=== PATIENT | female | born 1970 | race Caucasian/White ===

== ENCOUNTER 2019-05-27 15:04 | Outpatient (CLI) | payer BC, SELFPAY ==
[2019-05-27 15:40] LABS: Hematocrit 40.6 % (37.0-47.0); Hemoglobin 13.9 g/dL (12.0-15.0); Mean Corpuscular HGB Conc 34.2 g/dl (32-36); Mean Corpuscular Hemoglobin 28.6 pg (26-34); Mean Corpuscular Volume 83.5 fl (80-100); Mean Platelet Volume 10.5 fl (7.4-10.4); Platelet Count Result 170 k/mm3 (150-375); Red Blood Count 4.86 M/mm3 (4.2-5.4); Red Cell Distribution Width 13.6 % (11.5-14.5); White Blood Count 3.8 K/mm3 (4.5-10.0)
[2019-05-27 15:52] LABS: Alanine Aminotransferase 12 U/L (4-35); Albumin Level 4.5 g/dL (3.5-5.1); Alkaline Phosphatase 59 U/L (38-126); Aspartate Amino Transferase 19 U/L (14-36); Blood Urea Nitrogen 14 mg/dL (7-17); Calcium 9.4 mg/dL (8.4-10.2); Carbon Dioxide 26 mmol/L (22-30); Chloride 105 mmol/L (98-107); Estimated Glomerular Filt Rate 53; Glucose 102 mg/dL (65-105); Magnesium 2.3 mg/dL (1.6-2.3); Potassium 4.3 mmol/L (3.4-5.0); Sodium 137 mmol/L (137-145)
[2019-05-27 16:01] LABS: NT Pro B Type Natriuretic Pept 93 PG/ML (5-100)
== END 2019-05-27 15:05 | disposition home or self-care (01) ==
PROVIDERS: PCP Family Medicine
DX: I27.20 Pulmonary hypertension, unspecified (principal); R55 Syncope and collapse; D64.9 Anemia, unspecified
CPT/HCPCS: 36415; 80053; 83036; 83735; 83880; 85027

== ENCOUNTER 2019-06-16 15:22 | Outpatient (CLI) | payer BC, SELFPAY ==
[2019-06-16 16:34] LABS: Blood Urea Nitrogen 12 mg/dL (7-17); Calcium 9.7 mg/dL (8.4-10.2); Carbon Dioxide 24 mmol/L (22-30); Chloride 106 mmol/L (98-107); Estimated Glomerular Filt Rate 60; Glucose 102 mg/dL (65-105); Potassium 4.8 mmol/L (3.4-5.0); Sodium 138 mmol/L (137-145)
== END 2019-06-16 15:23 | disposition home or self-care (01) ==
PROVIDERS: PCP Family Medicine
DX: I27.0 Primary pulmonary hypertension (principal)
CPT/HCPCS: 36415; 80048

== ENCOUNTER 2019-07-12 09:45 | Outpatient (CLI) | payer BC, SELFPAY ==
--- NOTE | ~2019-07-12 | DEXA_ITS ---
Bone Density Report Name: Bianca Hope Age: 48 Sex: Female Ethnicity: White Date of : 1970 Indication: postmenopausal; Referring Provider: MAE, YAKELIN Study: Bone densitometry was performed. Exam Date: July 12, 2019 Accession number: [id number] Bone Density: Region BMD T-score Z-score Classification AP Spine (L1-L4) 0.851 -1.8 -1.2 Osteopenia Femoral Neck (Left) 0.764 -0.8 -0.2 Normal Total Hip (Left) 0.873 -0.6 -0.2 Normal Total Hip Bilateral Avg 0.870 -0.6 -0.3 Normal Femoral Neck (Right) 0.775 -0.7 -0.1 Normal Total Hip (Right) 0.865 -0.6 -0.3 Normal World Health Organization criteria for BMD impression classify patients as: Normal (T-score at or above -1.0), Osteopenia (T-score between -1.0 and -2.5), or Osteoporosis (T-score at or below -2.5). 10-year Fracture Risk(1): Major Osteoporotic Fracture 2.9% Hip Fracture 0.1% Reported Risk Factors: [place] (), Neck BMD=0.764, BMI=29.4 (1) FRAX(R) Version 3.08. Fracture probability calculated for an untreated patient. Fracture probability may be lower if the patient has received treatment. Clinical Information Provided by Patient: Has used the following medications: Vitamin D Patient maximum height was 63 Menopause Age: 46 Does not regularly consume dairy products Onset of menses at age 13 Number of children 0 Impression: The patient has low bone mass, based on the Total Spine T-score. The patient has an estimated ten-year risk of hip fracture of 0.1% and an estimated ten-year risk of major fracture of 2.9%, based on the WHO FRAX algorithm. Discussion: BONE DENSITY IS LOW AT ONE OR MORE SKELETAL SITES. This patient's lowest T-score is low at one or more skeletal sites. It meets the World Health Organization's (WHO) criteria for ?low bone mass? (T-score between -1.0 and -2.5). The patient's 10-year risk of fracture as calculated by FRAX is less than the threshold where pharmacological therapy is recommended by the National Osteoporosis Foundation (NOF). However, all treatment decisions require clinical judgment and consideration of individual patient factors, including patient preferences, comorbidities, previous drug use, risk factors not captured in the FRAX model (e.g., frailty, falls, vitamin D deficiency, increased bone turnover, interval significant decline in bone density) and possible under or overestimation of fracture risk by FRAX. The patient should follow a healthful lifestyle (good nutrition with adequate calcium and vitamin D, and appropriate weight-bearing exercise). Follow-Up: Consider repeating this study in 2 to 3 years to reassess this patient's status, or sooner if there is some new clinical indication. Reported by: ROLANDO on 07/14/2019 8:45:00 AM. Revi
--- NOTE | ~2019-07-12 | MM_ITS ---
EXAMINATION: MM screening [facility] BI w aramis HISTORY: Screening mammogram TECHNIQUE: Craniocaudal and mediolateral oblique 3-D tomosynthesis images were obtained and synthetic 2-D images were generated. CAD analysis was submitted and interpreted. COMPARISON: 07/09/2018, 07/07/2017, 06/22/2016 bilateral digital screening mammogram examinations... BREAST PARENCHYMAL COMPOSITION: There are scattered areas of fibroglandular density. FINDINGS: Stable bilateral mammary lymph nodes. There is no evidence of suspicious mass, calcificatio n, or architectural distortion to suggest malignancy in either breast. There has been no suspicious i nterval change. IMPRESSION: 1. No mammographic evidence of malignancy. 2. Recommend routine screening mammography in one year. BI-RADS Category 2: Benign finding(s). Reviewed, dictated and finalized at location A.
== END 2019-07-12 09:46 | disposition home or self-care (01) ==
LOC: ANHIMG 09:47
PROVIDERS: PCP Family Medicine; Visit Provider Nurse Practitioner
DX: Z12.31 Encounter for screening mammogram for malignant neoplasm of breast (principal); Z13.820 Encounter for screening for osteoporosis; M85.88 Other specified disorders of bone density and structure, other site
CPT/HCPCS: 77063; 77067; 77080

== ENCOUNTER 2019-08-25 15:20 | Outpatient (CLI) | payer BC, SELFPAY ==
[2019-08-25 16:16] LABS: Basophils Percent Auto 0.7 % (0.2-1.2); Eosinophils Absolute Auto 0.1 K/mm3 (0-0.3); Eosinophils Percent Auto 2.8 % (0-4.4); Hematocrit 40.9 % (37.0-47.0); Hemoglobin 13.7 g/dL (12.0-15.0); Immature Granulocyte Absolute 0.01 K/mm3 (0.00-0.031); Immature Granulocyte Percent A 0.2 % (0-0.5); Lymphocytes Absolute Auto 1.46 K/mm3 (0.9-3.2); Lymphocytes Percent Auto 34.6 % (18.3-44.2); Mean Corpuscular HGB Conc 33.5 g/dl (32-36); Mean Corpuscular Hemoglobin 28.4 pg (26-34); Mean Corpuscular Volume 84.7 fl (80-100); Mean Platelet Volume 11.3 fl (7.4-10.4); Monocytes Absolute Auto 0.3 K/mm3 (0.1-0.6); Monocytes Percent Auto 7.8 % (2.6-8.5); Neutrophils Absolute Auto 2.3 K/mm3 (1.3-6.7); Neutrophils Percent Auto 53.9 % (45.5-73.1); Platelet Count Result 184 k/mm3 (150-375); Red Blood Count 4.83 M/mm3 (4.2-5.4); Red Cell Distribution Width 13.7 % (11.5-14.5); White Blood Count 4.2 K/mm3 (4.5-10.0)
[2019-08-25 16:27] LABS: Hemoglobin A1C 5.1 % (<5.7)
[2019-08-25 16:30] LABS: Alanine Aminotransferase 13 U/L (4-35); Albumin Level 4.5 g/dL (3.5-5.1); Alkaline Phosphatase 66 U/L (38-126); Aspartate Amino Transferase 21 U/L (14-36); Bilirubin,Total 1.8 mg/dL (0.2-1.3); Blood Urea Nitrogen 15 mg/dL (7-17); Calcium 9.3 mg/dL (8.4-10.2); Carbon Dioxide 25 mmol/L (22-30); Chloride 105 mmol/L (98-107); Estimated Glomerular Filt Rate 53; Glucose 98 mg/dL (65-105); Magnesium 2.3 mg/dL (1.6-2.3); Potassium 4.4 mmol/L (3.4-5.0); Sodium 137 mmol/L (137-145)
[2019-08-25 16:37] LABS: NT Pro B Type Natriuretic Pept 289 PG/ML (5-100)
== END 2019-08-25 15:21 | disposition home or self-care (01) ==
PROVIDERS: PCP Family Medicine
DX: I27.20 Pulmonary hypertension, unspecified (principal); D64.9 Anemia, unspecified; R55 Syncope and collapse; Z79.899 Other long term (current) drug therapy; R94.4 Abnormal results of kidney function studies
CPT/HCPCS: 36415; 80053; 83036; 83735; 83880; 85025

== ENCOUNTER 2020-02-12 15:26 | Outpatient (CLI) | payer BC, SELFPAY ==
[2020-02-12 16:31] LABS: Vitamin D 25 Hydroxy 61.3 ng/mL
== END 2020-02-12 15:27 | disposition home or self-care (01) ==
LOC: ANHLAB 15:29
PROVIDERS: PCP Family Medicine; Visit Provider Obstetrics & Gynecology Gynecology
DX: E55.9 Vitamin D deficiency, unspecified (principal)
CPT/HCPCS: 36415; 82306

== ENCOUNTER 2020-07-14 08:33 | Outpatient (CLI) | payer BC, SELFPAY ==
--- NOTE | ~2020-07-14 | MM_ITS ---
EXAMINATION: MM screening [facility] BI w aramis HISTORY: Screening TECHNIQUE: Craniocaudal and mediolateral oblique 3-D tomosynthesis images were obtained and synthetic 2-D images were generated. CAD analysis was submitted and interpreted. COMPARISON: Comparison to multiple prior studies sequentially, with oldest reviewed study dated 06/22. BREAST PARENCHYMAL COMPOSITION: There are scattered areas of fibroglandular density. FINDINGS: There are developing masses in the upper outer quadrant of the right breast. There are deve loping asymmetries in the upper outer quadrant of the left breast. IMPRESSION: 1. Developing right breast masses and left breast asymmetries, both in the upper outer quadrants. 2. Additional mammographic views and possible breast ultrasound are recommended. BI-RADS Category 0: Incomplete: Needs additional imaging evaluation. Reviewed, dictated and finalized at location A. IMPRESSION: 1. Developing right breast masses and left breast asymmetries, both in the uppe r outer quadrants. 2. Additional mammographic views and possible breast ultrasound are recommended . BI-RADS Category 0: Incomplete: Needs additional imaging evaluation.
== END 2020-07-14 08:34 | disposition home or self-care (01) ==
LOC: ANHIMG 08:34
PROVIDERS: PCP Family Medicine; Visit Provider Nurse Practitioner
DX: Z12.31 Encounter for screening mammogram for malignant neoplasm of breast (principal); R92.8 Other abnormal and inconclusive findings on diagnostic imaging of breast
CPT/HCPCS: 77063; 77067

== ENCOUNTER 2020-07-31 07:52 | Outpatient (CLI) | payer BC, SELFPAY ==
[2020-07-31 08:57] LABS: Alanine Aminotransferase 11 U/L (4-35); Albumin Level 4.3 g/dL (3.5-5.1); Alkaline Phosphatase 60 U/L (38-126); Anion Gap 8 mmol/L (8-16); Aspartate Amino Transferase 17 U/L (14-36); Bilirubin,Total 1.9 mg/dL (0.2-1.3); Blood Urea Nitrogen 15 mg/dL (7-17); Calcium 9.3 mg/dL (8.4-10.2); Carbon Dioxide 24 mmol/L (22-30); Chloride 109 mmol/L (98-107); Cholesterol 140 mg/dL (0-200); Estimated Glomerular Filt Rate 53; Glucose 99 mg/dL (65-105); HDL Direct 46 mg/dL; Potassium 4.2 mmol/L (3.4-5.0); Sodium 141 mmol/L (137-145); Triglycerides 90 mg/dL (<150)
[2020-07-31 09:08] LABS: LDL Cholesterol Direct 60 mg/dL
== END 2020-07-31 07:53 | disposition home or self-care (01) ==
PROVIDERS: PCP Family Medicine; Visit Provider Family Medicine
DX: I27.0 Primary pulmonary hypertension (principal); Z00.00 Encounter for general adult medical examination without abnormal findings; E78.2 Mixed hyperlipidemia; E53.8 Deficiency of other specified B group vitamins; R53.83 Other fatigue
CPT/HCPCS: 36415; 80053; 80061; 82607; 84443

== ENCOUNTER 2020-08-13 11:12 | Outpatient (CLI) | payer BC, SELFPAY ==
--- NOTE | ~2020-08-13 | MMUS_ITS ---
EXAMINATION: MM diagnostic mammo BI, US breast BI limited HISTORY: Follow-up bilateral breast masses TECHNIQUE: Additional 3-D tomosynthesis images of the breasts were performed and synthetic 2-D images were generated. CAD analysis was submitted and interpreted. High resolution limited bilateral breast ultrasound was performed. COMPARISON: 07/14/2020 BREAST PARENCHYMAL COMPOSITION: Breast composed of scattered areas of fibroglandular density. FINDINGS: MAMMOGRAPHIC FINDINGS: There is a focal mass in the upper outer quadrant of the right breast, likely representing benign int ramammary lymph node with central lucency. There are no suspicious masses, calcifications or architec tural distortion in the left breast to suggest malignancy. ULTRASOUND: Limited right breast ultrasound: At 8:30, 3 cm from the nipple, there is a septated 5 mm cyst. At 12: 00 near the nipple there is a 3 mm cyst. Limited left breast ultrasound: At 1:00, 3 cm from the nipple, there is a cluster of microcysts measu ring 7 mm. At 2:00, 3 cm from the nipple, there is a 4 mm cyst. No suspicious masses in either breast to suggest malignancy. IMPRESSION: 1. No evidence for malignancy in either breast. Benign findings. 2. Routine yearly screening mammogram and regular clinical breast examination are recommended. BI-RADS Category 2: Benign finding(s). Reviewed, dictated and finalized at location A. IMPRESSION: 1. No evidence for malignancy in either breast. Benign findings. 2. Routine yearly screening mammogram and regular clinical breast examination a re recommended. BI-RADS Category 2: Benign finding(s).
== END 2020-08-13 11:13 | disposition home or self-care (01) ==
LOC: ANHIMG 11:13
PROVIDERS: PCP Family Medicine; Visit Provider Obstetrics & Gynecology Gynecology
DX: R92.8 Other abnormal and inconclusive findings on diagnostic imaging of breast (principal)
CPT/HCPCS: 76642; 77066

== ENCOUNTER 2021-03-15 16:32 | Outpatient (CLI) | payer BC, SELFPAY ==
[2021-03-15 18:57] LABS: Vitamin D 25 Hydroxy 60.3 ng/mL
== END 2021-03-15 16:33 | disposition home or self-care (01) ==
LOC: ANHLAB 16:35
PROVIDERS: PCP Family Medicine; Visit Provider Obstetrics & Gynecology Gynecology
DX: E55.9 Vitamin D deficiency, unspecified (principal)
CPT/HCPCS: 36415; 82306

== ENCOUNTER 2021-07-19 18:51 | Emergency (ER) | payer BC, SELFPAY ==
--- NOTE | 2021-07-19 18:55 | ED.URI ---
HPI - URI/Sore Throat General Stated Complaint: fever,congestion Source: patient Mode of arrival: ambulatory Limitations: no limitations History of Present Illness HPI Narrative: is a 50-year-old female patient presenting to the clinic today with complaints of fever and congestion x3 days. She reports that Sunday morning she started with a low-grade fever, nasal congestion, and a mild productive cough. She reports that she is bringing up some yellow phlegm. History of obstructive sleep apnea and uses a CPAP. His temperature has been 101 ?F and she has been keeping that down with Tylenol. Her temperature currently is 38 ?C. She denies any chest pain or short of breath. She denies any known exposure to anyone with COVID, flu, or strep. Related Data Home Medications Medication Instructions Recorded Confirmed riociguat 2.5 mg tablet (Adempas) 2.5 mg PO TID 02/02/20 02/08/21 selexipag 1,600 mcg tablet tablet PO 07/19/21 (Uptravi) Allergies Allergy/AdvReac Type Severity Reaction Status Date / Time fentanyl Allergy Mild vomiting Verified 02/07/21 15:38 Review of Systems Review of Systems: Pertinent positives per HPI. Patient denies any chills, rash, headache, visual changes, dizziness, sore throat, shortness of breath, chest pain, palpitations, nausea, vomiting, diarrhea, constipation, abdominal pain, or any urinary issues. [facility] Past Medical History Medical History History of obstructive sleep apnea Obstructive sleep apnea on CPAP Primary pulmonary hypertension Seasonal allergies Vitamin B12 deficiency Family History Family History Father Patient's father is in good health Social History Social History Second hand tobacco smoke exposure: No Alcohol intake: never Substance use: never Substance use type: does not use Gender identity (if verbalized by the patient): Female Comments At the time of my signature, I reviewed and agree with the nursing past medical, surgical, social, and family history. There is no relevant family history pertinent to the patient complaint. Exam Narrative: General: Well-developed, well nourished, in no apparent distress Head: Normocephalic, atraumatic Eyes: Pupils equally round and reactive to light bilaterally, EOM intact, sclera injected bilaterally and conjunctive clear, no discharge, lids normal Ears: TMs intact and clear, ear canals clear, no drainage, grossly hearing normal. Nose: Nares patent, clear nasal discharge, mild inflammation, no sinus tenderness. Mouth: Oropharynx without lesions or masses, good dentition, MMM. Postnasal drip Neck: Supple, trachea midline, no enlargement of anterior or posterior cervical nodes, no thyroid masses or goiter palpable. Cardio: Tachycardic, regular rhythm, s1 and s2 normal, no murmur appreciated. Resp: Clear to auscultation bilaterally anteriorly and posteriorly, no rhonchi, rales, wheezing or rubs Course Course Emergency Course: Portions of this record may have been created with voice recognition software. Level of Care: Express Care Visit Vital Signs Vital signs: Vital signs reviewed MDM - URI/Sore Throat MDM Narrative Medical decision making narrative: At the time of visit patient is resting comfortably on the exam table. She reports fever, congestion, and productive cough x3 days. COVID and influenza testing completed in the clinic. COVID and flu testing were negative. I suspect the patient has an upper respiratory infection and supportive measures were discussed with the patient she voiced understanding of discharge instructions and agrees to the treatment plan. Differential Diagnosis Differential diagnosis: Likely upper respiratory infection, sinusitis, viral infection, bronchitis, influenza, pharyngitis and othe
[2021-07-19 18:58] VITALS: BP 120/71; PULSE 111; RESP 20; TEMP 38; O2SAT 96
== END 2021-07-19 19:42 | disposition home or self-care (01) ==
PROVIDERS: Emergency Provider Nurse Practitioner Family; PCP Family Medicine
DX: J06.9 Acute upper respiratory infection, unspecified (principal); Z20.822 Contact with and (suspected) exposure to COVID-19; G47.33 Obstructive sleep apnea (adult) (pediatric); I27.0 Primary pulmonary hypertension
CPT/HCPCS: 87426; 87804; 99213; C9803; G0463

== ENCOUNTER 2021-09-23 11:51 | Outpatient (CLI) | payer BC, SELFPAY ==
[2021-09-23 12:53] LABS: Vitamin D 25 Hydroxy 99.7 ng/mL
== END 2021-09-23 11:52 | disposition home or self-care (01) ==
PROVIDERS: PCP Family Medicine; Visit Provider Nurse Practitioner
DX: E55.9 Vitamin D deficiency, unspecified (principal)
CPT/HCPCS: 36415; 82306

== ENCOUNTER 2021-12-06 15:45 | Outpatient (CLI) | payer BC, SELFPAY ==
--- NOTE | ~2021-12-06 | MM_ITS ---
EXAMINATION: MM screening [facility] BI w aramis HISTORY: Screening mammogram TECHNIQUE: Craniocaudal and mediolateral oblique 3-D tomosynthesis images were obtained and synthetic 2-D images were generated. CAD analysis was submitted and interpreted. COMPARISON: 08/13/2020, 07/14/2020, 07/12/2019, 07/09/2018 BREAST PARENCHYMAL COMPOSITION: There are scattered areas of fibroglandular density. FINDINGS: No suspicious mass, calcification, or architectural distortion are identified in either rizwana ast to suggest malignancy. There has been no suspicious interval change. IMPRESSION: 1. No mammographic evidence of malignancy. 2. Recommend routine screening mammography in one year. BI-RADS Category 1: Negative Reviewed, dictated and finalized at location A.
--- NOTE | ~2021-12-06 | DEXA_ITS ---
Bone Density Report Name: LANCE CERRATO Age: 51 Sex: Female Ethnicity: White Date of : 1970 Indication: osteopenia; postmenopausal Referring Provider: MAE, YAKELIN Study: Bone densitometry was performed. Exam Date: December 06, 2021 Accession number: [id number] Bone Density: Region BMD T-score Z-score Classification AP Spine(L1-L4) 0.844 -1.8 -1.2 Osteopenia Femoral Neck (Left) 0.732 -1.1 -0.4 Osteopenia Total Hip (Left) 0.812 -1.1 -0.6 Osteopenia Femoral Neck (Right) 0.751 -0.9 -0.2 Normal Total Hip (Right) 0.830 -0.9 -0.5 Normal Total Hip Mean 0.821 -1.0 -0.6 Normal World Health Organization criteria for BMD impression classify patients as: Normal (T-score at or above -1.0), Osteopenia (T-score between -1.0 and -2.5), or Osteoporosis (T-score at or below -2.5). 10-year Fracture Risk(1): Major Osteoporotic Fracture 3.7% Hip Fracture 0.2% Reported Risk Factors: [place] (), Neck BMD=0.732, BMI=29.7 (1) FRAX(R) Version 3.08. Fracture probability calculated for an untreated patient. Fracture probability may be lower if the patient has received treatment. Previous Exams: Region Exam Age BMD T-score BMD Change BMD Change Date g/cm2 vs Baseline vs Previous AP Spine (L1-L4) 12/06/2021 51 0.844 -1.8 -0.006 (-0.8%) -0.006 (-0.8%) 07/12/2019 48 0.851 -1.8 Total Hip(Left) 12/06/2021 51 0.812 -1.1 -0.061 (-7.0%) -0.061 (-7.0%) 07/12/2019 48 0.873 -0.6 Total Hip(Right) 12/06/2021 51 0.830 -0.9 -0.035 (-4.1%) -0.035 (-4.1%) 07/12/2019 48 0.865 -0.6 *Denotes significance at 95% confidence level, LSC for AP Spine = 0.022 g/cm2, LSC for Total Hip = 0.027 g/cm2 Clinical Information Provided by Patient: Has used the following medications: Vitamin D, Calcium Patient maximum height was 64 Menopause Age: 46 No regular weight bearing exercise Drinks caffeinated beverages Onset of menses at age 13 Number of children 0 Impression: The patient has low bone mass, based on the Total Spine T-score. The patient has an estimated ten-year risk of hip fracture of 0.2% and an estimated ten-year risk of major fracture of 3.7%, based on the WHO FRAX algorithm. The BMD for the Total Hip(Left) decreased, changing by -7.0% since the last DXA exam. The BMD for the Total Hip(Right) decreased, changing by -4.1% since the last DXA exam. Discussion: BONE DENSITY IS LOW AT ONE OR MORE SKELETAL SITES. This
== END 2021-12-06 15:46 | disposition home or self-care (01) ==
PROVIDERS: PCP Family Medicine; Visit Provider Nurse Practitioner
DX: Z12.31 Encounter for screening mammogram for malignant neoplasm of breast (principal); M85.88 Other specified disorders of bone density and structure, other site; M85.852 Other specified disorders of bone density and structure, left thigh
CPT/HCPCS: 77063; 77067; 77080

== ENCOUNTER 2022-01-28 08:15 | Outpatient (CLI) | payer BC, SELFPAY ==
[2022-01-28 08:40] LABS: Alanine Aminotransferase 16 U/L (6-35); Albumin Level 4.4 g/dL (3.5-5.1); Alkaline Phosphatase 62 U/L (38-126); Anion Gap 5 mmol/L (8-16); Aspartate Amino Transferase 19 U/L (14-36); Bilirubin,Total 1.7 mg/dL (0.2-1.3); Blood Urea Nitrogen 14 mg/dL (7-17); Calcium 8.8 mg/dL (8.4-10.2); Carbon Dioxide 23 mmol/L (22-30); Chloride 112 mmol/L (98-107); Cholesterol 144 mg/dL (0-200); Estimated Glomerular Filt Rate 59; Glucose 104 mg/dL (65-110); HDL Direct 43 mg/dL; Potassium 4.1 mmol/L (3.4-5.0); Sodium 140 mmol/L (137-145); Triglycerides 80 mg/dL (<150)
[2022-01-28 08:51] LABS: LDL Cholesterol Direct 70 mg/dL
== END 2022-01-28 08:16 | disposition home or self-care (01) ==
LOC: ANHLAB 08:17
PROVIDERS: PCP Family Medicine; Visit Provider Physician Assistant
DX: I27.20 Pulmonary hypertension, unspecified (principal); E53.8 Deficiency of other specified B group vitamins; E78.5 Hyperlipidemia, unspecified
CPT/HCPCS: 36415; 80053; 80061; 82607

== ENCOUNTER 2022-04-11 11:56 | Outpatient (CLI) | payer BC, SELFPAY ==
[2022-04-11 14:08] LABS: Vitamin D 25 Hydroxy 66.7 ng/mL
== END 2022-04-11 11:57 | disposition home or self-care (01) ==
LOC: ANHLAB 11:58
PROVIDERS: PCP Family Medicine; Visit Provider Nurse Practitioner
DX: E55.9 Vitamin D deficiency, unspecified (principal)
CPT/HCPCS: 36415; 82306

== ENCOUNTER 2023-01-27 09:10 | Outpatient (CLI) | payer BC, SELFPAY ==
[2023-01-27 09:55] LABS: Hematocrit 38.3 % (37.0-47.0); Hemoglobin 12.7 g/dL (12.0-15.0); Mean Corpuscular HGB Conc 33.2 g/dl (32-36); Mean Corpuscular Hemoglobin 27.8 pg (26-34); Mean Corpuscular Volume 83.8 fl (80-100); Mean Platelet Volume 10.9 fl (7.4-10.4); Platelet Count Result 141 k/mm3 (150-375); Red Blood Count 4.57 M/mm3 (4.2-5.4); Red Cell Distribution Width 14.6 % (11.5-14.5); White Blood Count 3.6 K/mm3 (4.5-10.0)
[2023-01-27 10:05] LABS: Alanine Aminotransferase 11 U/L (6-35); Albumin Level 4.1 g/dL (3.5-5.1); Alkaline Phosphatase 58 U/L (38-126); Anion Gap 6 mmol/L (8-16); Aspartate Amino Transferase 16 U/L (14-36); Bilirubin,Total 1.9 mg/dL (0.2-1.3); Blood Urea Nitrogen 19 mg/dL (7-17); Calcium 9.1 mg/dL (8.4-10.2); Carbon Dioxide 22 mmol/L (22-30); Chloride 110 mmol/L (98-107); Cholesterol 139 mg/dL (0-200); Estimated Glomerular Filt Rate 53; Glucose 107 mg/dL (65-110); HDL Direct 40 mg/dL; Potassium 4.1 mmol/L (3.4-5.0); Sodium 138 mmol/L (137-145); Triglycerides 89 mg/dL (<150)
[2023-01-27 10:15] LABS: LDL Cholesterol Direct 73 mg/dL
== END 2023-01-27 09:11 | disposition home or self-care (01) ==
PROVIDERS: PCP Family Medicine; Visit Provider Physician Assistant
DX: Z13.220 Encounter for screening for lipoid disorders (principal); E53.8 Deficiency of other specified B group vitamins; R53.83 Other fatigue; Z13.1 Encounter for screening for diabetes mellitus
CPT/HCPCS: 36415; 80053; 80061; 82607; 85027

== ENCOUNTER 2023-03-27 14:57 | Outpatient (CLI) | payer BC, SELFPAY ==
--- NOTE | ~2023-03-27 | MM_ITS ---
EXAMINATION: MM screening [facility] BI w aramis HISTORY: Screening mammogram TECHNIQUE: Craniocaudal and mediolateral oblique 3-D tomosynthesis images were obtained and synthetic 2-D images were generated. CAD analysis was submitted and interpreted. COMPARISON: 12/06/2021, 08/13/2020, 07/14/2020, 07/12/2019 BREAST PARENCHYMAL COMPOSITION: There are scattered areas of fibroglandular density. FINDINGS: No suspicious mass, calcification, or architectural distortion are identified in either rizwana ast to suggest malignancy. There has been no suspicious interval change. IMPRESSION: 1. No mammographic evidence of malignancy. 2. Recommend routine screening mammography in one year. BI-RADS Category 1: Negative Reviewed, dictated and finalized at location A. ING MACHINE OPERATOR
== END 2023-03-27 14:58 | disposition home or self-care (01) ==
PROVIDERS: PCP Family Medicine; Visit Provider Nurse Practitioner
DX: Z12.31 Encounter for screening mammogram for malignant neoplasm of breast (principal)
CPT/HCPCS: 77063; 77067

== ENCOUNTER 2023-06-08 15:13 | Outpatient (CLI) | payer BC, SELFPAY ==
[2023-06-08 18:41] LABS: Vitamin D 25 Hydroxy 61.8 ng/mL
== END 2023-06-08 15:14 | disposition home or self-care (01) ==
LOC: ANHLAB 15:16
PROVIDERS: PCP Family Medicine; Visit Provider Obstetrics & Gynecology Gynecology
DX: E55.9 Vitamin D deficiency, unspecified (principal)
CPT/HCPCS: 36415; 82306

== ENCOUNTER 2024-02-08 09:29 | Outpatient (CLI) | payer BC, SELFPAY ==
[2024-02-08 09:47] LABS: Hematocrit 40.2 % (37.0-47.0); Hemoglobin 13.4 g/dL (12.0-15.0); Mean Corpuscular HGB Conc 33.3 g/dl (32-36); Mean Corpuscular Hemoglobin 27.9 pg (26-34); Mean Corpuscular Volume 83.8 fl (80-100); Mean Platelet Volume 9.3 fl (7.4-10.4); Platelet Count Result 132 k/mm3 (150-375); Red Cell Distribution Width 14.5 % (11.5-14.5); White Blood Count 2.9 K/mm3 (4.5-10.0)
[2024-02-08 09:58] LABS: Alanine Aminotransferase 17 U/L (6-35); Albumin Level 4.4 g/dL (3.5-5.1); Alkaline Phosphatase 62 U/L (38-126); Anion Gap 4 mmol/L (4-12); Aspartate Amino Transferase 19 U/L (14-36); Bilirubin,Total 2.1 mg/dL (0.2-1.3); Blood Urea Nitrogen 16 mg/dL (7-17); Calcium 9.2 mg/dL (8.4-10.2); Carbon Dioxide 24 mmol/L (22-30); Chloride 109 mmol/L (98-107); Cholesterol 146 mg/dL (0-200); Estimated Glomerular Filt Rate 47; Glucose 99 mg/dL (65-110); HDL Direct 42 mg/dL; Potassium 4.4 mmol/L (3.4-5.0); Sodium 137 mmol/L (137-145); Triglycerides 108 mg/dL (<150)
[2024-02-08 10:08] LABS: LDL Cholesterol Direct 66 mg/dL
[2024-02-08 11:25] LABS: Free T4 Free Thyroxine Reflex 1.35 ng/dL (0.78-2.19)
[2024-02-08 13:53] LABS: Total Triiodothyronine (T3) 1.42 NG/ML (0.97-1.69)
== END 2024-02-08 09:30 | disposition home or self-care (01) ==
LOC: ANHLAB 09:32
PROVIDERS: PCP Family Medicine; Visit Provider Physician Assistant Medical
DX: R41.9 Unspecified symptoms and signs involving cognitive functions and awareness (principal); J45.909 Unspecified asthma, uncomplicated; R53.83 Other fatigue; I27.0 Primary pulmonary hypertension; E78.2 Mixed hyperlipidemia; E53.8 Deficiency of other specified B group vitamins; R17 Unspecified jaundice
CPT/HCPCS: 36415; 80053; 80061; 82248; 82607; 84439; 84443; 84480; 85027

== ENCOUNTER 2024-05-05 15:30 | Outpatient (CLI) | payer BC, SELFPAY ==
[2024-05-05 16:54] LABS: Vitamin D 25 Hydroxy 58.5 ng/mL
--- OUTSIDE RECORDS SUMMARY | 2024-05-05 17:59 | XMS_ITS | Referral Summary ---
Author Organization [facility] Address [address] [place] [id number] Care Team Providers Care Senior Windows Administrator Name Role Phone Mellisa Restrepo MD Primary Care Provider [phone] Encounters Date Type Department Care Team Description 03/11/2024 2:55 PM [facility] WORKER Lab [address] [address] from Last 3 Months Allergies Active Allergy Reactions Criticality Noted Date Comments Fentanyl Nausea & Vomiting Low 06/25/2018 Medications cholecalciferol (VITAMIN D-3) 50,000 unit capsuleIndicati ons:takes on Sunday Take 50,000 Units by mouth once a week Active cyanocobalamin, vitamin B-12, 1,000 mcg/mL kitIndications: takes on the of the Inject 1,000 mcg as directed every 30 (thirty) days Active macitentan (OPSUMIT) 10 mg tablet Take 10 mg by mouth nightly Active tadalafil (CIALIS) 20 mg tablet Take 40 mg by mouth nightly Active riociguat (ADEMPAS) 2.5 mg tablet 2.5 mg 3 (three) times a day Active bimatoprost (LUMIGAN) 0.01 % ophthalmic drops 1 drop nightly Active ergocalciferol (VITAMIN D) 50,000 unit capsule Take 50,000 Units by mouth once a week Active cyanocobalamin (Vitamin B-12) 1,000 mcg/mL injection Active Active Problems Problem Noted Date Diagnosed Date Pulmonary hypertension 06/18/2018 Overview (06/18/2018): Added automatically from request for surgery [id number] Cardiomyopathy 06/18/2018 Overview (06/18/2018): Added automatically from request for surgery [id number] Social History Tobacco Use Types Packs/Day Years Used Date Smoking Tobacco: Former Smokeless Tobacco: Never Comments:only for 1 month @ age 18 Alcohol Use Standard Drinks/Week Comments Not Currently 0 (1 standard drink = 0.6 oz pur e alcohol) Personal Safety Answer Date Recorded Getting School Help Needed Not on file 04/27 Comments No Sex and Gender Information Value Date Recorded Sex Assigned at Not on file Legal Sex Female 1:20 PM GUM WORKER Gender Identity Not on file Sexual Orientation Not on file Last Filed Vital Signs Vital Sign Reading Time Taken Comments Blood Pressure 108/55 12/02/2019 12:55 PM CDT Pulse 79 12/02/2019 12:55 PM CDT Temperature 37.1 C (98.7 F) 12/02/2019 7:56 AM CDT Respiratory Rate 18 12/02/2019 7:56 AM CDT Oxygen Saturation 94% 12/02/2019 12:55 PM CDT Inhaled Oxygen Concentration - - Weight 78.2 kg (172 lb 8 oz) 12/02/2019 7:56 AM CDT Height 162.6 cm (5' 4 ) 12/02/2019 7:56 AM CDT Body Mass Index 29.61 12/02/2019 7:56 AM CDT Plan of Treatment Not on file Medical Devices Implanted Type Area Hand Alterations Seamstress Device Identifier Shelf Expiration Date Model / Serial / Lot [employer] [id number] Device Closure Angio-Seal Vip [employer]k-Plus Polyglyd L70 Cm Od6 Fr [id number] In Vascular - [id number] Implanted:Qty: 1 on 12/02/2019 by Alexia Trejo MD at [facility] [id number] / / Procedures Procedure Name Priority Date/Time Associated Diagnosis Comments EGFR Routine 03/11/2024 3:08 PM GUM WORKER MAGNESIUM Routine 03/11/2024 3:08 PM GUM WORKER CBC WITHOUT DIFFERENTIAL Routine 03/11/2024 3:08 PM GUM WORKER COMPREHENSIVE METABOLIC PANEL Routine 03/11/2024 3:08 PM GUM WORKER from Last 3 Months Results * (ABNORMAL) eGFR (03/11/2024 3:08 PM GUM WORKER) eGFR 41(L) >=60 mL/min/1. 73 m2 Comment: Interpretive Data Reference Interval Normal >/= 90 mL/min/1.73m2 Mildly decreased* 60 - 89 mL/min/1.73m2 Mildly to moderately decreased 45 - 59 mL/min/1.73m2 Moderately to severely decreased 30 - 44 mL/min/1.73m2 Severely decreased 15 - 29 mL/min/1.73m2 Kidney Failure < 15 mL/min/1.73m2 *Relative to young adult level Estimated glomerular filtration rate is determined by the 2020 CKD-EPI equation recommended by the National Kidney Foundation (A Unifying Approach to GFR Estimation: Recommendations of the NKF-ASK Task Force on Reassessing the Inclusion of Race in Diagnosing Kidney Disease, JASN 2020). The CKD-EPI equation should not be used for patients with unstable renal function and has not been validated in children and those over 70. Current interpretive data was last reviewed 2020. Blood 03/11/2024 3:08 PM GUM WORKER 03/11/2024 3:38 PM GUM WORKER Sonny Sanchez MD LAB BLOOD ORDERABLES Fi nal Result [facility] [id number] [address] Department [place] [address] * (ABNORMAL) CBC without differential (03/11/2024 3:08 PM GUM WORKER) WBC 3.6(L) 3.8 - 9.9 K/cumm Hgb 13.0 11.9 - 15.5 g/dL [facility] Hct 38.8 35.6 - 45.5 % [facility] Plt 152 150 - 400 K/cumm [facility] MPV 10.4 9.1 - 12.3 fL [facility] RBC 4.69 3.90 - 5.20 M/cumm [facility] MCV 82.7 81.3 - 96.4 fL [facility] MCH 27.7 27.1 - 33.3 pg [facility] MCHC 33.5 32.3 - 35.7 g/dL [facility] RDW CV 14.6 11.1 - 14.9 % [facility] RDW SD 44.0 35.7 - 48.1 fL [facility] NRBC abs 0.00 0.00 - 0.01 K/cumm [facility] Blood 03/11/2024 3:08 PM GUM WORKER 03/11/2024 3:38 PM GUM WORKER Sonny Sanchez MD LAB BLOOD ORDERABLES Fi nal Result Performing Organization Address [facility]/ZIP Co de Phone Number [facility] [id number] [address] [facility] [place] [address] * Magnesium (03/11/2024 3:08 PM GUM WORKER) [facility] Magnesium 2.3 1.4 - 2.5 mg/dL Blood 03/11/2024 3:08 PM GUM WORKER 03/11/2024 3:38 PM GUM WORKER Sonny Sanchez MD LAB BLOOD ORDERABLES Fi nal Result Performing Organization Address [facility] de Phone Number [facility] [address] [address] [facility] [place] [address] * (ABNORMAL) Comprehensive metabolic panel (03/11/2024 3:08 PM GUM WORKER) Pathologist [facility] Sodium 140 135 - 145 mmol/L Potassium, pl 4.2 3.3 - 4.9 mmol/L [facility] Chloride 106 97 - 110 mmol/L [facility] CO2 23 22 - 32 mmol/L [facility] Anion gap 11 2 - 15 mmol/L [facility] BUN 15 6 - 25 mg/dL [facility] Creatinine 1.53(H) 0.60 - 1.10 mg/dL [facility] Comment:Icteric sample, test results may be affected. Glucose 102 70 - 199 mg/dL [facility] Comment: Interpretive Data Fasting glucose >/= 126 mg/dl is diagnostic for diabetes. Fasting is defined as no caloric intake for at least 8 hours. Fasting glucose between 100 mg/dl to 125 mg/dl is diagnostic of prediabetes. In a patient with classic symptoms of hyperglycemia or hyperglycemic crisis, a random glucose >/= 200 mg/dl is diagnostic for diabetes. In the absence of unequivocal hyperglycemia, results should be confirmed by repeat testing. The classification and Diagnosis of Diabetes Diabetes Care 2021; 46: S19-S40. Current interpretive data was last revised 2022. Calcium 9.1 8.5 - 10.3 mg/dL [facility] Bilirubin, total 1.5(H) 0.1 - 1.2 mg/dL [facility] Protein, pl 6.5 6.5 - 8.5 g/dL [facility] Albumin 4.5 3.5 - 5.0 g/dL [facility] Alk phos 66 40 - 130 Units/L [facility] ALT 11 7 - 45 Units/L [facility] AST 10 10 - 45 Units/L [facility] Blood 03/11/2024 3:08 PM GUM WORKER 03/11/2024 3:38 PM GUM WORKER us Sonny Sanchez MD LAB BLOOD ORDERABLES Fi nal Result [facility] [id number] [address] Department [place] [address] from Last 3 Months Insurance [employer] ACCESS CHOICE ON LICENSE OF [facility] ACCESS CHOICE Advance Directives For more information, please contact: [phone] * Full Code (Latest Code Status on File) Date Activated Date Inactivated Comments 12/02/2019 11:13 AM 12/02/2019 5:38 PM Care Teams Senior Windows Administrator Relationship Specialty Start Date End Date Mellisa Restrepo MD PCP - General Family Medicine 03/19/18
--- OUTSIDE RECORDS SUMMARY | 2024-05-05 17:59 | XMS_ITS | Clinical Summary ---
Author Organization [facility] Address [address] [place] [id number] Care Team Providers Care Traffic Director Name Role Phone Mellisa Restrepo MD Primary Care Provider [phone] Allergies Active Allergy Reactions Criticality Noted Date [...] (06/18/2018): Added automatically from request for surgery [id number] Cardiomyopathy 06/18/2018 Overview (06/18/2018): Added automatically from request for surgery [id number] Encounters Date Type Department Care Team Description 03/11/2024 2:55 PM BRAND ACTIVATION MANAGER Lab [address] [address] from Last 3 Months Surgical History Surgery Date Site/Laterality Comments SKIN GRAFT 05/16/2018 Right palm of right hand, donor site right thigh TUBAL LIGATION 03/15/2016 - 04/11/2016 CARDIAC CATHETERIZATION 2016 CERVIX SURGERY x3 Medical History Medical History Date Comments Pulmonary hypertension (HCC) has PAH Cardiomyopathy (HCC) Syncope History of transfusion @ age 22 for pernicious anemia Family History Medical History Relation Name Comments COPD Father Cancer Father lung Non-Hodgkin's Lymphoma Father Diabetes Mother Hyperlipidemia Mother Hypertension Mother Relation Name Status Comments Father Alive Mother Alive Social History Tobacco Use Types Packs/Day Years [...] on file Legal Sex Female 1:20 PM BRAND ACTIVATION MANAGER Gender Identity Not on file Sexual Orientation Not on file Obstetrics History Last Filed Vital Signs Vital Sign Reading [...] 12/02/2019 7:56 AM CDT Plan of Treatment Health Maintenance Due Date Last Done Comments Breast Cancer Screening-Mammogram 1972 Cervical Cancer Screening 1972 Colon Cancer Screening-Colonoscopy 1972 Depression Screening 1972 Hepatitis C Screening 1972 Hepatitis B Screening 1990 Regular Well Visit/Exam 18-64 1990 Zoster Vaccine (1 of 2) 2022 Covid-19 Vaccine (2 - 2023-2 5 season) 2023 11/27/2020 Influenza Vaccine (#1) 2023 01/20/2016 DTaP/Tdap/Td Vaccine (2 - Td or Tdap) 04/07/2028 04/07/2018 Pneumococcal vaccine <65 Aged Out 2016 No longer eligible based on patient's age to complete this topic Medical Devices Implanted Type Area Road Roller Operator Hot Mix Device Identifier Shelf Expiration Date Model / Serial / Lot [employer] [id number] Device Closure Angio-Seal Vip Bondek-Plus Polyglyd L70 Cm Od6 Fr Odsec.035 In Vascular - [id number] Implanted:Qty: 1 on 12/02/2019 by Alexia Trejo MD at [facility] [id number] / / Procedures Procedure Name Priority Date/Time Associated Diagnosis Comments EGFR Routine 03/11/2024 3:08 PM BRAND ACTIVATION MANAGER MAGNESIUM Routine 03/11/2024 3:08 PM BRAND ACTIVATION MANAGER CBC WITHOUT DIFFERENTIAL Routine 03/11/2024 3:08 PM BRAND ACTIVATION MANAGER COMPREHENSIVE METABOLIC PANEL Routine 03/11/2024 3:08 PM BRAND ACTIVATION MANAGER from Last 3 Months Results * (ABNORMAL) eGFR (03/11/2024 3:08 PM BRAND ACTIVATION MANAGER) eGFR 41(L) >=60 mL/min/1. 73 m2 Comment: [...] last reviewed 2020. Blood 03/11/2024 3:08 PM BRAND ACTIVATION MANAGER 03/11/2024 3:38 PM BRAND ACTIVATION MANAGER Sonny Sanchez MD LAB BLOOD ORDERABLES Fi nal Result Performing Organization Address City/[facility]/ZIP Co de Phone Number [facility] [place] [address] [place] [address] * (ABNORMAL) CBC without differential (03/11/2024 3:08 PM BRAND ACTIVATION MANAGER) WBC 3.6(L) 3.8 - 9.9 K/cumm Hgb 13.0 11.9 - 15.5 g/dL [facility] Hct 38.8 35.6 - 45.5 % [facility] Plt 152 150 - 400 K/cumm [facility] MPV 10.4 9.1 - 12.3 fL [facility] RBC 4.69 3.90 - 5.20 M/cumm [facility] MCV 82.7 81.3 - 96.4 fL [facility] MCH 27.7 27.1 - 33.3 pg [facility] MCHC 33.5 32.3 - 35.7 g/dL [facility] RDW CV 14.6 11.1 - 14.9 % [facility] RDW SD 44.0 35.7 - 48.1 fL [facility] NRBC abs 0.00 0.00 - 0.01 K/cumm [facility] Blood 03/11/2024 3:08 PM BRAND ACTIVATION MANAGER 03/11/2024 3:38 PM BRAND ACTIVATION MANAGER Sonny Sanchez MD LAB BLOOD ORDERABLES Fi nal Result Performing Organization Address City/[facility] Co de Phone Number [facility] [place] [address] Department [employer] [place], [place] [id number] * Magnesium (03/11/2024 3:08 PM BRAND ACTIVATION MANAGER) Magnesium 2.3 1.4 - 2.5 mg/dL Blood 03/11/2024 3:08 PM BRAND ACTIVATION MANAGER 03/11/2024 3:38 PM BRAND ACTIVATION MANAGER us Sonny Sanchez MD LAB [place]LOOD [place] [address] [address] Department [place] [address] * (ABNORMAL) Comprehensive metabolic panel (03/11/2024 3:08 PM BRAND ACTIVATION MANAGER) Sodium 140 135 - 145 mmol/L Potassium, pl 4.2 3.3 - 4.9 mmol/L [facility] Chloride 106 97 - 110 mmol/L [facility] CO2 23 22 - 32 mmol/L [facility] Anion gap 11 2 - 15 mmol/L [facility] BUN 15 6 - 25 mg/dL [facility] Creatinine 1.53(H) 0.60 - 1.10 mg/dL [facility] Comment:Icteric sample, test results may be affected. Glucose 102 70 - 199 mg/dL [facility] Comment: Interpretive Data Fasting glucose >/= 126 [...] classification and Diagnosis of Diabetes Diabetes Care 202; 46: S19-S40. Current interpretive data was last [...] Units/L [facility] Blood 03/11/2024 3:08 PM BRAND ACTIVATION MANAGER 03/11/2024 3:38 PM BRAND ACTIVATION MANAGER Sonny Sanchez MD LAB BLOOD ORDERABLES Fi nal Result [facility] [place] [address] [place] [address] from Last 3 Months Insurance Clerts! ACCESS CHOICE ANTH[employer] ACCESS CHOICE Advance Directives For more information, please contact: [phone] * Full Code (Latest Code Status on File) Date Activated Date Inactivated Comments 12/02/2019 11:13 AM 12/02/2019 5:38 PM Care Teams Traffic Director Relationship Specialty Start Date End Date Mellisa Restrepo MD PCP - General Family Medicine 03/19/18
--- OUTSIDE RECORDS SUMMARY | 2024-05-05 17:59 | XMS_ITS | Clinical Summary ---
Author Organization [facility] Address [address] [place] [id number] Care Team Providers Care Operations And Maintenance Supervisor Name Role Phone Unavailable Primary Care Provider Unavailabl e Immunizations Immunization Administration Dates Next Due Covid-19, Mrna, Lnp-s, Pf, 30 Mcg/0.3 Ml Dose (P jamaal) 11/27/2020 Social History Tobacco Use Types Packs/Day Years Used Date Smoking Tobacco: Never Assessed Comments Unknown Sex and Gender Information Value Date Recorded Sex Assigned at Not on file Legal Sex Female 10:16 AM CDT Gender Identity Not on file Sexual Orientation Not on file Plan of Treatment Health Maintenance Due Date Last Done Comments Hepatitis C Virus (HCV) Screening 1972 Hepatitis B Immunization (1 of 3 - 19+ 3-dose series) 10/11/1991 Colonoscopy 2017 Colorectal Cancer Screening 2017 Cologuard 2022 Immunochemical Fecal Occult Blood 2022 Pneumococcal Immunization (5 0+ years) (2 of 2 - PCV) 2022 2016 Zoster Immunization (1 of 2) 2022 Influenza Immunization (#1) 10/14/202310/13, 01/20/2016 SARS-COV-2 Immunization ( season) 2023 11/27/2020, 05/04/2020, 04/13/2020 Respiratory Syncytial Virus (RSV) Immunization (Adult) (1 - 1-dose 75+ series) 10/11/2047 Pneumococcal Immunization Combined Discontinued 2016 DTaP/Tdap/Td Immunization Discontinued 04/07/2018 TdaP Immunization Completed 04/07/2018 Meningococcal Immunization (ACWY) Aged Out No longer eligible based on patient's age to complete this topic Rotavirus Immunization Aged Out No lo nger eligible based on patient's age to complete this topic
== END 2024-05-05 15:31 | disposition home or self-care (01) ==
LOC: ANHLAB 15:34
PROVIDERS: PCP Family Medicine; Visit Provider Nurse Practitioner
DX: E55.9 Vitamin D deficiency, unspecified (principal)
CPT/HCPCS: 36415; 82306

== ENCOUNTER 2024-10-07 10:36 | Outpatient (CLI) | payer BC, SELFPAY ==
--- NOTE | ~2024-10-07 | DEXA_ITS ---
Bone Density Report Name: LANCE CERRATO Age: 53 Sex: Female Ethnicity: White Date of : 1970 Indication: osteopenia; Referring Provider: MAE, YAKELIN Study: Bone densitometry was performed. Exam Date: October 07, 2024 Accession number: [id number] Bone Density: Region BMD T-score Z-score Classification AP Spine(L1-L4) 0.860 -1.7 -0.8 Osteopenia Femoral Neck (Left) 0.703 -1.3 -0.5 Osteopenia Total Hip (Left) 0.803 -1.1 -0.6 Osteopenia Femoral Neck (Right) 0.753 -0.9 0.0 Normal Total Hip (Right) 0.813 -1.1 -0.5 Osteopenia Total Hip Mean 0.808 -1.1 -0.6 Osteopenia World Health Organization criteria for BMD impression classify patients as: Normal (T-score at or above -1.0), Osteopenia (T-score between -1.0 and -2.5), or Osteoporosis (T-score at or below -2.5). 10-year Fracture Risk(1): Major Osteoporotic Fracture 5.0% Hip Fracture 0.3% Reported Risk Factors: [place] (), Neck BMD=0.703, BMI=29.7 (1) FRAX(R) Version 3.08. Fracture probability calculated for an untreated patient. Fracture probability may be lower if the patient has received treatment. Previous Exams: Region Exam Age BMD T-score BMD Change BMD Change Date g/cm2 vs Baseline vs Previous AP Spine (L1-L4) 10/07/2024 53 0.860 -1.7 0.009 (1.1%) 0.016 (1.9%) 12/06/2021 51 0.844 -1.8 -0.006 (-0.8%) -0.006 (-0.8%) 07/12/2019 48 0.851 -1.8 Total Hip(Left) 10/07/2024 53 0.803 -1.1 -0.070 (-8.0%) -0.009 (-1.1%) 12/06/2021 51 0.812 -1.1 -0.061 (-7.0%) -0.061 (-7.0%) 07/12/2019 48 0.873 -0.6 Total Hip(Right) 10/07/2024 53 0.813 -1.1 -0.053 (-6.1%) -0.017 (-2.1%) 12/06/2021 51 0.830 -0.9 -0.035 (-4.1%) -0.035 (-4.1%) 07/12/2019 48 0.865 -0.6 *Denotes significance at 95% confidence level, LSC for AP Spine = 0.022 g/cm2, LSC for Total Hip = 0.027 g/cm2 Clinical Information Provided by Patient: Has used the following medications: Vitamin D, Calcium Patient maximum height was 64 Menopause Age: 46 No regular weight bearing exercise Drinks caffeinated beverages Onset of menses at age 13 Number of children 0 Impression: The patient has low bone mass, based on the Total Spine T-score. The patient has an estimated ten-year risk of hip fracture of 0.3% and an estimated ten-year risk of major fracture of 5%, based on the WHO FRAX algorithm. No significant bone loss was observed. Discussion: BONE DENSITY IS LOW AT ONE OR MORE SKELETAL SITES. This patient's lowest T-score is low at one or more skeletal sites. It meets the World Health Organization's (WHO) criteria for ?low bone mass? (T-score between -1.0 and -2.5). The patient's 10-year risk of fracture as calculated by FRAX is less than the threshold where pharmacological therapy is recommended by the National Osteoporosis Foundation (NOF). However, all treatment decisions require clinical judgment and consideration of individual patient factors, including patient preferences, comorbidities, previous drug use, risk factors not captured in the FRAX model (e.g., frailty, falls, vitamin D deficiency, increased bone turnover, interval significant decline in bone density) and possible under or overestimation of fracture risk by FRAX. The patient should follow a healthful lifestyle (good nutrition with adequate calcium and vitamin D, and appropriate weight-bearing exercise). Follow-Up: Consider repeating this study in 2 to 3 years to reassess this patient's status, or sooner if there is some new clinical indication. Reported by: CHRISTINA on 10/07/2024 11:15:00 AM. Reviewed, dictated and finalized at location A.
--- OUTSIDE RECORDS SUMMARY | 2024-10-07 11:08 | XMS_ITS | Clinical Summary ---
Author Organization [facility] Address [address] [place] [phone] Care Team Providers Care Retail Support Specialist Name Role Phone Mellisa Restrepo MD Primary Care Provider [phone] Allergies Active Allergy Reactions Criticality Noted Date Comments Fentanyl Nausea & Vomiting Low 06/25/2018 Medications cholecalciferol (VITAMIN D-3) 50,000 unit capsuleIndicati ons:takes on Sunday Take 1 capsule (50,000 Units total) by mouth once a week Take on Sunday Active cyanocobalamin, vitamin B-12, 1,000 mcg/mL kitIndications: takes on the of the Inject 1,000 mcg as directed every 30 (thirty) days Active riociguat (ADEMPAS) 2.5 mg tablet 1 tablet (2.5 mg total) 3 (three) times a day Active albuterol HFA (PROVENTIL HFA,VENTOLIN HFA,PROAIR HFA) 90 mcg/actuation inhaler Inhale 2 puffs every 4 (four) hours as needed 5 Active montelukast (SINGULAIR) 10 mg tablet Take 1 tablet (10 mg total) by mouth every morning 5 Active prednisoLONE acetate (PRED FORTE) 1 % ophthalmic suspension Administer 1 drop into both eyes nightly 5 Active Uptravi 1,600 mcg tablet Take 1 tablet (1,600 mcg total) by mouth 2 (two) times a day 5 Active Spiriva Respimat 1.25 mcg/actuation inhaler Inhale 2 puffs nightly 5 Active macitentan (OPSUMIT) 10 mg tablet Take 1 tablet (10 mg total) by mouth nightly Active Active Problems Problem Noted Date Diagnosed Date Primary pulmonary hypertension 06/11/2024 Pulmonary hypertension 06/18/2018 Overview (06/18/2018): Added automatically from request for surgery [id number] Cardiomyopathy 06/18/2018 Overview (06/18/2018): Added automatically from request for surgery [id number] Encounters Date Type Department Care Team Description 10/02/2024 3:30 PM CDT Lab [address] [address] 09/15/2024 2:50 PM CDT Lab [address] [address] 08/25/2024 3:15 PM CDT Lab [address] [address] 08/04/2024 3:15 PM CDT Lab [address] [address] from Last 3 Months Surgical History Surgery Date Site/Laterality Comments SKIN GRAFT 05/16/2018 Right palm of right hand, donor site right thigh TUBAL LIGATION 03/15/2016 - 04/11/2016 CARDIAC CATHETERIZATION 2016 CERVIX SURGERY x3 CARDIAC CATHETERIZATION 06/26/2024 Chest/N/A Procedure: RIGHT HEART CATHETERIZATION [id number]; Surgeon: Ernestina Sanchez MD; Location: CARDIAC MUSIC COORDINATOR; Service: Pulmonary; Laterality: N/A; Medical History Medical History Date Comments Pulmonary hypertension (HCC) has PAH Cardiomyopathy Syncope History of transfusion @ age 22 for pernicious anemia Asthma Pernicious anemia Family History Medical History Relation Name Comments COPD Father Cancer Father lung Non-Hodgkin's Lymphoma Father Diabetes Mother Hyperlipidemia Mother Hypertension Mother Relation Name Status Comments Father Alive Mother Alive Social History Tobacco Use Types Packs/Day Years Used Date Smoking Tobacco: Former Cigarettes Smokeless Tobacco: Never Tobacco Cessation:Counseling Given: Not Answered Comments:only for 1 month @ age 18 Alcohol Use Standard Drinks/Week Comments Not Currently 0 (1 standard drink = 0.6 oz pur e alcohol) AUDIT-C Answer Date Recorded Q1: How often do you have a drink containing alc ohol? Monthly or less 06/26/2024 Q2: How many drinks containi ng alcohol do you have on a typical day when you are drinking? 1 or 2 06/26/2024 Q3: How often do you have si x or more drinks on one occasion? Never 06/26/2024 Personal Safety Answer Date Recorded Have you ever been in or are you currently in a harmful physical or emotional relationship or is someone making you feel afraid or unsafe? Denies 06/26/2024 Comments No Sex and Gender Information Value Date Recorded Sex Assigned at Not on file Legal Sex Female 1:20 PM FLOWER STRIPPER Gender Identity Not on file Sexual Orientation Not on file Obstetrics History Last Filed Vital Signs Vital Sign Reading Time Taken Comments Blood Pressure 131/69 06/26/2024 6:50 AM CDT Pulse 80 06/26/2024 6:50 AM CDT Temperature 36.7 C (98 F) 06/26/2024 6:50 AM CDT Respiratory Rate 17 06/26/2024 6:50 AM CDT Oxygen Saturation 97% 06/26/2024 6:50 AM CDT Inhaled Oxygen Concentration - - Weight 82.8 kg (182 lb 8 oz) 06/26/2024 6:50 AM CDT Height 162.6 cm (5' 4) 06/26/2024 6:50 AM CDT Body Mass Index 31.33 06/26/2024 6:50 AM CDT Plan of Treatment Health Maintenance Due Date Last Done Comments Breast Cancer Screening-Mammogram 1972 Cervical Cancer Screening 1972 Colon Cancer Screening-Colonoscopy 1972 Depression Screening 1972 Hepatitis C Screening 1972 Hepatitis B Screening 1990 Regular Well Visit/Exam 18-64 1990 Zoster Vaccine (1 of 2) 2022 Covid-19 Vaccine (4 - 2023-2 5 season) 2023 11/27/2020, 05/04/2020, 04/13/2020 Influenza Vaccine (#1) 2024 01/20/2016 DTaP/Tdap/Td Vaccine (2 - Td or Tdap) 04/07/2028 04/07/2018 Pneumococcal vaccine <65 Aged Out 2016 No longer eligible based on patient's age to complete this topic Medical Devices Implanted Type Area Soda Column Operator Device Identifier Shelf Expiration Date Model / Serial / Lot [facility] Deanne [id number] Device Closure Angio-Seal Vip Bondek-Plus Polyglyd L70 Cm Od6 Fr Odsec.035 In Vascular - [id number] Implanted:Qty: 1 on 12/02/2019 by Alexia Trejo MD at [facility] [id number] / / Procedures Procedure Name Priority Date/Time Associated Diagnosis Comments EGFR Routine 10/02/2024 3:39 PM CDT MAGNESIUM Routine 10/02/2024 3:39 PM CDT CBC WITHOUT DIFFERENTIAL Routine 10/02/2024 3:39 PM CDT PRO B-TYPE NATRIURETIC PEPTIDE Routine 10/02/2024 3:39 PM CDT COMPREHENSIVE METABOLIC PANEL Routine 10/02/2024 3:39 PM CDT DIFFERENTIAL AUTO Routine 09/15/2024 3:2 0 PM CDT CBC WITH AUTO DIFFERENTIAL Routine 09/15/2024 3:20 PM CDT CBC WITHOUT DIFFERENTIAL Routine 08/25/2024 3:30 PM CDT CBC WITHOUT DIFFERENTIAL Routine 08/04/2024 3:37 PM CDT from Last 3 Months Results * eGFR (10/02/2024 3:39 PM CDT) [facility] eGFR 64 >=60 mL/min/1. 73 m2 Comment: Interpretive Data [...] of Race in Diagnosing Kidney Disease, JASN 202). The CKD-EPI equation should not be used for patients with unstable renal function and has not been validated in children and those over 70. Current interpretive data was last reviewed 2020. Blood 10/02/2024 3:39 PM CDT 10/02/2024 4:14 PM CDT us Ernestina Sanchez MD LAB BLOOD ORDERABLES Fi nal Result [facility] [address] [address] Department [place] [address] * Pro B-type natriuretic peptide (10/02/2024 3:39 PM CDT) NT-proBNP 50 <=300 pg/mL Comment: Interpretive Comments: A. Dyspnea in Acute Care Setting All Ages: < 300 pg/ml, acute heart failure unlikely. < 50 yrs: 300 - 450 pg/ml, further investigation warranted. > 450 pg/ml, acute heart failure likely. 50 - 74 yrs: 300 - 900 pg/ml, further investigation warranted. > 900 pg/ml, acute heart failure likely . > or = 75 yrs: 450 - 1800 pg/ml, further investigation warranted. > 1800 pg/ml, acute heart failure likely. B. Non-acute Setting < 75 yrs < 125 pg/ml, rules out heart failure. > or = 125 pg/ml, further investigation warranted. > or = 75 yrs < 450 pg/ml, rules out heart failure. > or = 450 pg/ml, further investigation warranted. - Knowledge of each individual patient's NT-proBNP range may be more useful than using similar cut-points for every patient. Please note that marked elevations in NT-proBNP levels may be observed in state other than Left Ventricular Congestive Failure, including: acute coronary syndromes, right heart strain/failure (including pulmonary embolism and cor pulmonale), critical illness, renal failure, as well as advanced age. - References: 1. Prasanth DUDLEY et.al. Eur Heart J. 2006:27:330-337. 2. Beronica RW, Johnny UREÑA. J. AM Pamela Cardiol: Cardiovasc Imag. 2009;2: 216- 225. Interpretive Data Last Revised Date: 2017. Blood 10/02/2024 3:39 PM CDT 10/02/2024 3:39 PM CDT Ernestina Sanchez MD LAB BLOOD ORDERABLES Fi nal Result Performing Organization Address [facility]/ZIP Co de Phone Number [facility] [address] [address] [place] [address] * (ABNORMAL) CBC without differential (10/02/2024 3:39 PM CDT) WBC 3.77(L) 3.80 - 9.90 K/cumm Hgb 15.1 11.9 - 15.5 g/dL [facility] Hct 45.5 35.6 - 45.5 % [facility] Plt 133(L) 150 - 400 K/cumm [facility] Comment:No clot detected in sample. MPV 10.6 9.1 - 12.3 fL [facility] RBC 5.41(H) 3.90 - 5.20 M/cumm [facility] MCV 84.1 81.3 - 96.4 fL [facility] MCH 27.9 27.1 - 33.3 pg [facility] MCHC 33.2 32.3 - 35.7 g/dL [facility] RDW CV 16.4(H) 11.1 - 14.9 % [facility] RDW SD 49.2(H) 35.7 - 48.1 fL [facility] NRBC abs 0.00 0.00 - 0.01 K/cumm [facility] Blood 10/02/2024 3:39 PM CDT 10/02/2024 3:39 PM CDT Ernestina Sanchez MD LAB BLOOD ORDERABLES Fi nal Result Performing Organization Address City/[facility]/ZIP Co de Phone Number [facility]NELI[facility] [place] [address] [address] [place] [address] * Magnesium (10/02/2024 3:39 PM CDT) Magnesium 2.2 1.4 - 2.5 mg/dL Blood 10/02/2024 3:39 PM CDT 10/02/2024 3:39 PM CDT Ernestina Sanchez MD LAB BLOOD ORDERABLES Fi nal Result [facility] [address] Department [place] [address] * (ABNORMAL) Comprehensive metabolic panel (10/02/2024 3:39 PM CDT) Sodium 140 135 - 145 mmol/L Potassium, pl 4.2 3.3 - 4.9 mmol/L [facility] Chloride 107 97 - 110 mmol/L [facility] CO2 21(L) 22 - 32 mmol/L [facility] Anion gap 12 2 - 15 mmol/L [facility] BUN 12 6 - 25 mg/dL [facility] Creatinine 1.06 0.60 - 1.10 mg/dL [facility] Comment:Icteric sample, test results may be affected. Glucose 91 70 - 199 mg/dL [facility] Comment: Interpretive Data Fasting glucose >/= 126 [...] interpretive data was last revised 2022. Calcium 8.8 8.5 - 10.3 mg/dL [facility] Bilirubin, total 1.6(H) 0.1 - 1.2 mg/dL [facility] Protein, pl 6.5 6.5 - 8.5 g/dL [facility] Albumin 4.3 3.5 - 5.0 g/dL [facility] Alk phos 83 40 - 130 Units/L [facility] ALT 13 7 - 45 Units/L [facility] AST 15 10 - 45 Units/L [facility] Blood 10/02/2024 3:39 PM CDT 10/02/2024 3:39 PM CDT us Ernestina Sanchez MD LAB BLOOD ORDERABLES Fi nal Result [facility] [address] [address] Department [place] [address] * (ABNORMAL) Differential, auto (09/15/2024 3:20 PM CDT) Neutrophil abs 1.56 1.50 - 6.50 K/cumm Imm gran abs 0.12(H) 0.00 - 0.10 K/cumm [facility] Lymphocyte abs 1.40 0.80 - 3.30 K/cumm [facility] Monocyte abs 0.25 0.20 - 0.80 K/cumm [facility] Eosinophil abs 0.09 0.00 - 0.50 K/cumm [facility] Basophil abs 0.03 0.00 - 0.10 K/cumm [facility] Neutrophil pct 45.2 % [facility] Comment: Interpretive Data Percent cell count reference ranges are not reported, since discordance with absolute values may lead to misinterpretation of CBC data. Current Interpretive Data was last revised on 2017. Imm gran pct 3.5 % [facility] Comment: Interpretive Data Percent cell count reference ranges are not reported, since discordance with absolute values may lead to misinterpretation of CBC data. Current Interpretive Data was last revised on 2017. Lymphocyte pct 40.6 % [facility] Comment: Interpretive Data Percent cell count reference ranges are not reported, since discordance with absolute values may lead to misinterpretation of CBC data. Current Interpretive Data was last revised on 2017. Monocyte pct 7.2 % [facility] Comment: Interpretive Data Percent cell count reference ranges are not reported, since discordance with absolute values may lead to misinterpretation of CBC data. Current Interpretive Data was last revised on 2017. Eosinophil pct 2.6 % [facility] Comment: Interpretive Data Percent cell count reference ranges are not reported, since discordance with absolute values may lead to misinterpretation of CBC data. Current Interpretive Data was last revised on 2017. Basophil pct 0.9 % [facility] Comment: Interpretive Data Percent cell count reference ranges are not reported, since discordance with absolute values may lead to misinterpretation of CBC data. Current Interpretive Data was last revised on 2017. Blood 09/15/2024 3:20 PM CDT 09/15/2024 3:32 PM CDT Ernestina Sanchez MD LAB BLOOD ORDERABLES nal Result [facility] [address] [address] Department [place] [address] * (ABNORMAL) CBC with auto differential (09/15/2024 3:20 PM CDT) WBC 3.45(L) 3.80 - 9.90 K/cumm Hgb 14.6 11.9 - 15.5 g/dL [facility] Hct 43.7 35.6 - 45.5 % [facility] Plt 109(L) 150 - 400 K/cumm [facility] MPV 10.7 9.1 - 12.3 fL [facility] RBC 5.30(H) 3.90 - 5.20 M/cumm [facility] MCV 82.5 81.3 - 96.4 fL [facility] MCH 27.5 27.1 - 33.3 pg [facility] MCHC 33.4 32.3 - 35.7 g/dL [facility] RDW CV 15.9(H) 11.1 - 14.9 % [facility] RDW SD 46.5 35.7 - 48.1 fL [facility] NRBC abs 0.00 0.00 - 0.01 K/cumm [facility] Blood 09/15/2024 3:20 PM CDT 09/15/2024 3:32 PM CDT Ernestina Sanchez MD LAB BLOOD ORDERABLES Fi nal Result Performing Organization Address City/[facility]/ZIP Co de Phone Number [facility] [address] [place] [address] * (ABNORMAL) CBC without differential (08/25/2024 3:30 PM CDT) WBC 3.96 3.80 - 9.90 K/cumm Hgb 14.5 11.9 - 15.5 g/dL [facility] Hct 43.7 35.6 - 45.5 % [facility] Plt 149(L) 150 - 400 K/cumm [facility] MPV 10.4 9.1 - 12.3 fL [facility] RBC 5.32(H) 3.90 - 5.20 M/cumm [facility] MCV 82.1 81.3 - 96.4 fL [facility] MCH 27.3 27.1 - 33.3 pg [facility] MCHC 33.2 32.3 - 35.7 g/dL [facility] RDW CV 14.8 11.1 - 14.9 % [facility] RDW SD 44.0 35.7 - 48.1 fL [facility] NRBC abs 0.00 0.00 - 0.01 K/cumm [facility] Blood 08/25/2024 3:30 PM CDT 08/25/2024 3:30 PM CDT Ernestina Sanchez MD LAB BLOOD ORDERABLES Fi nal Result Performing Organization Address [facility] Co de Phone Number [facility] [address] Department of Laboratories [place], [place] [id number] * (ABNORMAL) CBC without differential (08/04/2024 3:37 PM CDT) WBC 4.24 3.80 - 9.90 K/cumm Hgb 13.7 11.9 - 15.5 g/dL [facility] Hct 40.5 35.6 - 45.5 % [facility] Plt 145(L) 150 - 400 K/cumm [facility] MPV 9.8 9.1 - 12.3 fL [facility] RBC 4.96 3.90 - 5.20 M/cumm [facility] MCV 81.7 81.3 - 96.4 fL [facility] MCH 27.6 27.1 - 33.3 pg [facility] MCHC 33.8 32.3 - 35.7 g/dL [facility] RDW CV 14.6 11.1 - 14.9 % [facility] RDW SD 42.6 35.7 - 48.1 fL [facility] NRBC abs 0.00 0.00 - 0.01 K/cumm [facility] Blood 08/04/2024 3:37 PM CDT 08/04/2024 3:37 PM CDT Ernestina Sanchez MD LAB BLOOD ORDERABLES nal Result [place] [address] [address] Department [place] [address] from Last 3 Months Insurance [employer] CHOICE Advance Directives For more information, please contact: [phone] * Full Code (Latest Code Status on File) Date Activated Date Inactivated Comments 12/02/2019 11:13 AM 12/02/2019 5:38 PM Care Teams Retail Support Specialist Relationship Specialty Start Date End Date Mellisa Restrepo MD PCP - General Family Medicine 03/19/18
--- OUTSIDE RECORDS SUMMARY | 2024-10-07 11:08 | XMS_ITS | Clinical Summary ---
Author Organization [facility] Address [address] [place] [id number] Care Team Providers Care Certified Indoor Environmentalist Name Role Phone Unavailable Primary Care Provider Unavailabl e Immunizations Immunization Administration Dates Next Due Covid-19, Mrna, Lnp-s, Pf, 30 Mcg/0.3 Ml Dose ([place]) 11/27/2020 Social History Tobacco Use Types Packs/Day [...] of 3 - 19+ 3-dose series) 10/11/1991 Pap Smear 1993 Cervical Cancer Screening (CCS) 2002 HPV/Cotest 2002 Cologuard 2017 Colonoscopy 2017 Colorectal Cancer Screening 2017 Immunochemical Fecal Occult Blood 2017 Pneumococcal Immunization (5 0+ years) (2 of 2 - PCV) 2022 2016 Zoster Immunization (1 of 2) 2022 SARS-COV-2 Immunization ( season) 2023 11/27/2020, 05/04/2020, 04/13/2020 Influenza Immunization (#1) 10/13/202410/13, 01/20/2016 Respiratory Syncytial Virus (RSV) Immunization (Adult) (1 - 1-dose 75+ series) 10/11/2047 Pneumococcal Immunization Combined Discontinued 2016 DTaP/Tdap/Td Immunization Discontinued 04/07/2018 TdaP Immunization Completed 04/07/2018 Human Papillomavirus (HPV) Immunization Aged Out No longer eligible based on patient's age to complete this topic Meningococcal Immunization (ACWY) Aged Out No longer eligible based on patient's age to complete this topic Rotavirus Immunization Aged Out No lo nger eligible based on patient's age to complete this topic
== END 2024-10-07 10:37 | disposition home or self-care (01) ==
LOC: ANHFOHIMG 10:37
PROVIDERS: PCP Family Medicine; Visit Provider Nurse Practitioner
DX: Z78.0 Asymptomatic menopausal state (principal); M85.88 Other specified disorders of bone density and structure, other site; M85.852 Other specified disorders of bone density and structure, left thigh; M85.851 Other specified disorders of bone density and structure, right thigh
CPT/HCPCS: 77080

== ENCOUNTER 2025-02-11 08:30 | Outpatient (CLI) | payer BC, SELFPAY ==
--- OUTSIDE RECORDS SUMMARY | 2025-02-11 08:41 | XMS_ITS | Clinical Summary ---
Author Organization [facility] Address [address] [place] [id number] Care Team Providers Care Hip Hop Dancer Name Role Phone Mellisa Restrepo MD Primary Care Provider [phone] Allergies Active Allergy Reactions Criticality Noted Date [...] (06/18/2018): Added automatically from request for surgery [id number] Cardiomyopathy 06/18/2018 Overview (06/18/2018): Added automatically from request for surgery [id number] Encounters Date Type Department Care Team Description 01/22/2025 2:55 PM DIRECTOR PROCESS ENGINEERING Lab [address] [address] 01/15/2025 11:15 AM DIRECTOR PROCESS ENGINEERING Lab [address] [address] from Last 3 Months Surgical History Surgery Date Site/Laterality Comments SKIN GRAFT 05/16/2018 Right palm of right hand, donor site right thigh TUBAL LIGATION 03/15/2016 - 04/11/2016 CARDIAC CATHETERIZATION 2016 CERVIX SURGERY x3 CARDIAC CATHETERIZATION 06/26/2024 Chest/N/A Procedure: RIGHT HEART CATHETERIZATION 64207; Surgeon: Ernestina Sanchez MD; Location: CARDIAC CREDIT UNION EXAMINER; Service: Pulmonary; Laterality: N/A; Medical History Medical [...] on file Legal Sex Female 1:20 PM DIRECTOR PROCESS ENGINEERING Gender Identity Not on file Sexual Orientation [...] of 2) 2022 Covid-19 Vaccine (4 - 2024-2 6 season) 2024 11/27/2020, 05/04/2020, 04/13/2020 Influenza Vaccine (#1) 2024 01/20/2016 DTaP/Tdap/Td Vaccine (2 - Td or Tdap) 04/07/2028 04/07/2018 Pneumococcal vaccine <65 Aged Out 2016 No longer eligible based on patient's age to complete this topic Medical Devices Implanted Type Area Air Brake Worker Device Identifier Shelf Expiration Date Model / Serial / Lot Daig Deanne [id number] Device Closure Angio-Seal Vip Bondek-Plus Polyglyd L70 Cm Od6 Fr Odsec.035 In Vascular - [id number] Implanted:Qty: 1 on 12/02/2019 by Alexia Trejo MD at [facility] [id number] / / Procedures Procedure Name Priority Date/Time Associated Diagnosis Comments MANUAL DIFFERENTIAL Routine 01/22/2025 3 :03 PM DIRECTOR PROCESS ENGINEERING CBC WITH AUTO DIFFERENTIAL Routine 01/22/2025 3:03 PM DIRECTOR PROCESS ENGINEERING EGFR Routine 01/15/2025 11:22 AM DIRECTOR PROCESS ENGINEERING MAGNESIUM Routine 01/15/2025 11:22 AM DIRECTOR PROCESS ENGINEERING CBC WITHOUT DIFFERENTIAL Routine 01/15/2025 11:22 AM DIRECTOR PROCESS ENGINEERING PRO B-TYPE NATRIURETIC PEPTIDE Routine 01/15/2025 11:22 AM DIRECTOR PROCESS ENGINEERING COMPREHENSIVE METABOLIC PANEL Routine 01/15/2025 11:22 AM DIRECTOR PROCESS ENGINEERING from Last 3 Months Results * (ABNORMAL) CBC with auto differential (01/22/2025 3:03 PM DIRECTOR PROCESS ENGINEERING) WBC 3.73(L) 3.80 - 9.90 K/cumm Hgb 14.6 11.9 - 15.5 g/dL [facility] Hct 44.3 35.6 - 45.5 % [facility] Plt 106(L) 150 - 400 K/cumm [facility] MPV 10.9 9.1 - 12.3 fL [facility] RBC 5.23(H) 3.90 - 5.20 M/cumm [facility] MCV 84.7 81.3 - 96.4 fL [facility] MCH 27.9 27.1 - 33.3 pg [facility] MCHC 33.0 32.3 - 35.7 g/dL [facility] RDW CV 17.2(H) 11.1 - 14.9 % [facility] RDW SD 53.0(H) 35.7 - 48.1 fL [facility] NRBC abs 0.00 0.00 - 0.01 K/cumm [facility] Blood 01/22/2025 3:03 PM DIRECTOR PROCESS ENGINEERING 01/22/2025 3:03 PM DIRECTOR PROCESS ENGINEERING us Ernestina Sanchez MD LAB BLOOD ORDERABLES Fi nal Result [facility] [address] [address] Department [place] [address] * (ABNORMAL) Manual Differential (01/22/2025 3:03 PM DIRECTOR PROCESS ENGINEERING) Differential Manual Cells Counted 100 [facility] Neutrophil abs 1.64 1.50 - 6.50 K/cumm [facility] Imm gran abs 0.15(H) 0.00 - 0.10 K/cumm [facility] Lymphocyte abs 1.53 0.80 - 3.30 K/cumm [facility] Monocyte abs 0.37 0.20 - 0.80 K/cumm [facility] Basophil abs 0.04 0.00 - 0.10 K/cumm [facility] Neutrophil pct 44.0 % [facility] Comment: Interpretive Data Percent cell count reference ranges are not reported, since discordance with absolute values may lead to misinterpretation of CBC data. Current Interpretive Data was last revised on 2017. Lymphocyte pct 41.0 % [facility] Comment: Interpretive Data Percent cell count reference ranges are not reported, since discordance with absolute values may lead to misinterpretation of CBC data. Current Interpretive Data was last revised on 2017. Monocyte pct 10.0 % [facility] Comment: Interpretive Data Percent cell count reference ranges are not reported, since discordance with absolute values may lead to misinterpretation of CBC data. Current Interpretive Data was last revised on 2017. Basophil pct 1.0 % [facility] Comment: Interpretive Data Percent cell count reference ranges are not reported, since discordance with absolute values may lead to misinterpretation of CBC data. Current Interpretive Data was last revised on 2017. Metamyelocyte pct 3.0(H) 0.0 - 0.0 % [facility] Myelocyte pct 1.0(H) 0.0 - 0.0 % [facility] RBC morphology Normal [facility] Platelet estimate Adequate [facility] Blood 01/22/2025 3:03 PM DIRECTOR PROCESS ENGINEERING 01/22/2025 3:10 PM DIRECTOR PROCESS ENGINEERING Ernestina Sanchez MD LAB BLOOD ORDERABLES Fi nal Result Performing Organization Address [facility] de Phone Number [facility] [place] [address] [address] Department [email or web address] [address] * eGFR (01/15/2025 11:22 AM DIRECTOR PROCESS ENGINEERING) eGFR 62 >=60 mL/min/1. 73 m2 Comment: Interpretive Data [...] interpretive data was last reviewed 2020. Blood 01/15/2025 11:2 2 AM DIRECTOR PROCESS ENGINEERING 01/15/2025 11:37 AM DIRECTOR PROCESS ENGINEERING Ernestina Sanchez MD LAB BLOOD ORDERABLES Fi nal Result Performing Organization Address [facility] Co de Phone Number [facility] [place] [address] [address] Department [email or web address] [address] * Pro B-type natriuretic peptide (01/15/2025 11:22 AM DIRECTOR PROCESS ENGINEERING) NT-proBNP 44 <=300 pg/mL Comment: Interpretive Comments: A. Dyspnea [...] Interpretive Data Last Revised Date: 2017. Blood 01/15/2025 11:2 2 AM DIRECTOR PROCESS ENGINEERING 01/15/2025 11:23 AM DIRECTOR PROCESS ENGINEERING us Ernestina Sanchez MD LAB BLOOD ORDERABLES Fi nal Result [facility] [address] [address] Department [place] [address] * (ABNORMAL) CBC without differential (01/15/2025 11:22 AM DIRECTOR PROCESS ENGINEERING) WBC 3.30(L) 3.80 - 9.90 K/cumm Hgb 14.8 11.9 - 15.5 g/dL [facility] Hct 45.2 35.6 - 45.5 % [facility] Plt 83(L) 150 - 400 K/cumm [facility] MPV 10.7 9.1 - 12.[address] [facility] RBC 5.29(H) 3.90 - 5.20 M/cumm [facility] MCV 85.4 81.3 - 96.4 fL [facility] MCH 28.0 27.1 - 33.3 pg [facility] MCHC 32.7 32.3 - 35.7 g/dL [facility] RDW CV 18.1(H) 11.1 - 14.9 % [facility] CH RDW SD 54.5(H) 35.7 - 48.1 fL [facility] NRBC abs 0.00 0.00 - 0.01 K/cumm [facility] Blood 01/15/2025 11:2 2 AM DIRECTOR PROCESS ENGINEERING 01/15/2025 11:23 AM DIRECTOR PROCESS ENGINEERING Ernestina Sanchez MD LAB BLOOD ORDERABLES Fi nal Result Performing Organization Address [facility] Co de Phone Number [facility] [address] [address] [facility] [place] [address] * Magnesium (01/15/2025 11:22 AM DIRECTOR PROCESS ENGINEERING) [facility] Magnesium 2.2 1.4 - 2.5 mg/dL Blood 01/15/2025 11:2 2 AM DIRECTOR PROCESS ENGINEERING 01/15/2025 11:23 AM DIRECTOR PROCESS ENGINEERING Ernestina Sanchez MD LAB BLOOD ORDERABLES Fi nal Result Performing Organization Address [facility] de Phone Number [facility] [address] [address] [facility] [employer] [place] [address] * (ABNORMAL) Comprehensive metabolic panel (01/15/2025 11:22 AM DIRECTOR PROCESS ENGINEERING) Pathologist [facility] Sodium 139 135 - 145 mmol/L Potassium, pl 3.9 3.3 - 4.9 mmol/L [facility] Chloride 107 97 - 110 mmol/L [facility] CO2 19(L) 22 - 32 mmol/L [facility] Anion gap 13 2 - 15 mmol/L [facility] BUN 10 6 - 25 mg/dL [facility] Creatinine 1.07 0.60 - 1.10 mg/dL [facility] Comment:Icteric sample, test results may be affected. Glucose 87 70 - 199 mg/dL [facility] Comment: Interpretive Data Fasting glucose [...] interpretive data was last revised 2022. Calcium 9.2 8.5 - 10.3 mg/dL [facility] Bilirubin, total 1.8(H) 0.1 - 1.2 mg/dL [facility] Protein, pl 6.3(L) 6.5 - 8.5 g/dL [facility] Albumin 4.3 3.5 - 5.0 g/dL [facility] Alk phos 77 40 - 130 Units/L [facility] ALT 10 7 - 45 Units/L [facility] AST 16 10 - 45 Units/L [facility] Blood 01/15/2025 11:2 2 AM DIRECTOR PROCESS ENGINEERING 01/15/2025 11:23 AM DIRECTOR PROCESS ENGINEERING Ernestina Sanchez MD LAB BLOOD ORDERABLES [facility] Result [facility] [address] [address] Department [place] [address] from Last 3 Months Insurance [facility] ACCESS CHOICE ANTHEM ACCESS CHOICE Advance Directives For more information, please contact: [phone] * Full Code (Latest Code Status on File) Date Activated Date Inactivated Comments 12/02/2019 11:13 AM 12/02/2019 5:38 PM Care Teams Hip Hop Dancer Relationship Specialty Start Date End Date Mellisa Restrepo MD PCP - General Family Medicine 03/19/18
--- OUTSIDE RECORDS SUMMARY | 2025-02-11 08:41 | XMS_ITS | Clinical Summary ---
Author Organization [facility] Address [address] [place] [phone] Care Team Providers Care Pet Walker Name Role Phone Unavailable Primary Care Provider [...] (1 of 2) 2022 Influenza Immunization (#1) 2024 09/1 , 01/20/2016 SARS-COV-2 Immunization ( season) 2024 11/27/2020, 05/04/2020, 04/13/2020 Respiratory Syncytial Virus (RSV) Immunization (Adult) (1 - 1-dose 75+ series) 10/11/2047 Pneumococcal Immunization Combined Discontinued 2016 DTaP/Tdap/Td Immunization Discontinued 04/07/2018 TdaP Immunization Completed 04/07/2018 Human Papillomavirus (HPV) Immunization (No Doses Required) Completed Meningococcal Immunization (ACWY) Aged Out No longer eligible based on patient's age to complete this topic Rotavirus Immunization Aged Out No lo nger eligible based on patient's age to complete this topic
[2025-02-11 18:40] LABS: Hematocrit 49.1 % (37.0-47.0); Hemoglobin 15.7 g/dL (12.0-15.0); Immature Granulocyte Percent A 4.2 % (0-0.5); Immature Platelet Fraction Pct 6.7 % (0.9-11.2); Lymphocytes Absolute Auto 1.63 K/mm3 (0.9-3.2); Mean Corpuscular HGB Conc 32.0 g/dl (32-36); Mean Corpuscular Hemoglobin 28.9 pg (26-34); Mean Corpuscular Volume 90.3 fl (80-100); Nucleated Red Blood Cells Absolute Auto 0.030 K/mm3 (0.0-0.012); Nucleated Red Blood Cells Perc 0.8 % (0.0-0.2); Platelet Count Result 90 k/mm3 (150-375); Red Blood Count 5.44 M/mm3 (4.2-5.4); White Blood Count 3.6 K/mm3 (4.5-10.0)
[2025-02-11 19:06] LABS: Thyroid Stimulating Hormone Reflex 5.490 uIU/mL (0.465-4.68)
[2025-02-11 19:11] LABS: Alanine Aminotransferase 13 U/L (6-35); Albumin Level 4.3 g/dL (3.5-5.1); Alkaline Phosphatase 76 U/L (38-126); Anion Gap 9 mmol/L (4-12); Aspartate Amino Transferase 31 U/L (14-36); Bilirubin,Total 1.6 mg/dL (0.2-1.3); Blood Urea Nitrogen 12 mg/dL (7-17); Calcium 9.3 mg/dL (8.4-10.2); Carbon Dioxide 21 mmol/L (22-30); Chloride 109 mmol/L (98-107); Cholesterol 179 mg/dL (0-200); Estimated Glomerular Filt Rate 49; Glucose 80 mg/dL (65-110); HDL Direct 32 mg/dL; Potassium 3.8 mmol/L (3.4-5.0); Sodium 139 mmol/L (137-145); Total Protein 6.8 g/dL (6.3-8.2); Triglycerides 250 mg/dL (<150)
[2025-02-11 19:36] LABS: Free T4 Free Thyroxine Reflex 1.25 ng/dL (0.78-2.19)
[2025-02-11 20:07] LABS: Vitamin B12 575.0 pg/mL (239-931)
[2025-02-11 21:02] LABS: Total Triiodothyronine (T3) 1.33 NG/ML (0.82-1.58)
[2025-02-11 22:49] LABS: Ovalocytes 1+; Poikilocytosis 1+
[2025-02-11 22:50] LABS: Burr Cells 1+; Schistocytes None Seen
== END 2025-02-11 08:31 | disposition home or self-care (01) ==
LOC: ANHGOSHLAB 08:31
PROVIDERS: PCP Family Medicine Adolescent Medicine; Visit Provider Family Medicine
DX: D72.819 Decreased white blood cell count, unspecified (principal); E78.2 Mixed hyperlipidemia; I27.0 Primary pulmonary hypertension; Z00.00 Encounter for general adult medical examination without abnormal findings; R53.83 Other fatigue; E53.8 Deficiency of other specified B group vitamins
CPT/HCPCS: 36415; 80053; 80061; 82607; 84439; 84443; 84480; 85025; 85055